=== PATIENT | female | born 1985 | race Caucasian/White ===

== ENCOUNTER 2020-04-02 16:02 | Outpatient (CLI) | payer OTHER ==
[2020-04-02 16:29] LABS: ALANINE AMINOTRANSFERASE 11 U/L (12-78); ALBUMIN 3.4 g/dL (3.4-5.0); ANION GAP 5 mmol/L (5-15); CALCIUM 9.2 mg/dL (8.5-10.1); CHLORIDE 106 mmol/L (98-107)
[2020-04-02 16:38] LABS: ALKALINE PHOSPHATASE 56 U/L (45-117); BILIRUBIN,TOTAL 0.3 mg/dL (0.2-1.0); T4 (THYROXINE) 12.9 mcg/dL (4.8-13.9); TOTAL PROTEIN 7.2 g/dL (6.4-8.2)
== END 2020-04-02 23:59 | disposition home or self-care (01) ==
LOC: LAB 16:02
PROVIDERS: ATTEND Internal Medicine Cardiovascular Disease
DX: O00.01 Abdominal pregnancy with intrauterine pregnancy (principal); I47.1 Supraventricular tachycardia; R00.2 Palpitations
CPT/HCPCS: 36415; 80053; 83735; 84436; 84443; 84481

== ENCOUNTER 2020-07-24 10:03 | Outpatient (CLI) | payer OTHER ==
[~2020-07-24] VITALS: Ht 157.5 cm; Wt 72.7 kg
[2020-07-24 10:41] LABS: MICROSCOPIC INDICATED
[2020-07-24 10:50] LABS: BASOPHILS % (AUTO) 0 % (0-1); EOSINOPHILS % (AUTO) 0 % (1-7); LYMPHOCYTES % (AUTO) 19 % (22-44); MD NO; MEAN CORPUSCULAR HEMOGLOBIN 34.2 pg (27.0-34.8); MEAN CORPUSCULAR HGB CONC 35.1 g/dL (32.4-35.8); MEAN PLATELET VOLUME 7.8 fL (7.4-10.4); MONOCYTES % (AUTO) 7 % (2-9); NEUTROPHILS % (AUTO) 74 % (42-75); PLATELET COUNT 240 x10^3/uL (130-400); RED BLOOD COUNT 3.14 x10^6/uL (3.82-5.3); RED CELL DISTRIBUTION WIDTH 12.8 % (9.6-15.2)
[2020-07-24 11:01] LABS: ALBUMIN 2.9 g/dL (3.4-5.0); ANION GAP 6 mmol/L (5-15); CHLORIDE 106 mmol/L (98-107)
[2020-07-24 11:06] LABS: ALANINE AMINOTRANSFERASE 8 U/L (12-78); ALKALINE PHOSPHATASE 59 U/L (45-117); BILIRUBIN,TOTAL 0.4 mg/dL (0.2-1.0); CREATININE 0.87 mg/dL (0.55-1.02); TOTAL PROTEIN 6.7 g/dL (6.4-8.2)
== END 2020-07-24 12:00 | disposition home or self-care (01) ==
LOC: LDOP 10:03
PROVIDERS: ATTEND Student in an Organized Health Care Education/Training Program
DX: O09.93 Supervision of high risk pregnancy, unspecified, third trimester (principal); O16.3 Unspecified maternal hypertension, third trimester; Z3A.30 30 weeks gestation of pregnancy
CPT/HCPCS: 36415; 59025; 80053; 81001; 82570; 84156; 84550; 85025; 87086

== ENCOUNTER 2020-08-14 21:32 | Outpatient (CLI) | payer OTHER ==
[~2020-08-14] VITALS: Ht 157.5 cm; Wt 74.1 kg
[2020-08-14 21:41] VITALS: BP 146/84
[2020-08-14 22:07] LABS: ALANINE AMINOTRANSFERASE 11 U/L (12-78); ALBUMIN 2.6 g/dL (3.4-5.0); ANION GAP 6 mmol/L (5-15); CALCIUM 7.8 mg/dL (8.5-10.1); CHLORIDE 109 mmol/L (98-107); CREATININE 0.67 mg/dL (0.55-1.02)
[2020-08-14 22:09] LABS: MICROSCOPIC AUTO
[2020-08-14 22:09] LABS: ALKALINE PHOSPHATASE 66 U/L (45-117); BILIRUBIN,TOTAL 0.4 mg/dL (0.2-1.0); TOTAL PROTEIN 6.3 g/dL (6.4-8.2)
[2020-08-14 22:50] LABS: MEAN CORPUSCULAR HEMOGLOBIN 34.5 pg (27.0-34.8); MEAN PLATELET VOLUME 8.3 fL (7.4-10.4); PLATELET COUNT 208 x10^3/uL (130-400); RED BLOOD COUNT 2.85 x10^6/uL (3.82-5.3); RED CELL DISTRIBUTION WIDTH 13.6 % (9.6-15.2)
[2020-08-14 22:51] LABS: CREATININE,URINE RANDOM < 13.00 mg/dL; TOTAL PROTEIN,URINE RANDOM < 5 mg/dL (0-12)
[2020-08-14] MEDS ORDERED: TERBUTALINE 1 MG/ML, 1ML ONE (23:40)
[2020-08-15] MEDS ORDERED: TERBUTALINE 1 MG/ML, 1ML SQ ONE
[2020-08-15 00:03] LABS: BAND#(MANUAL) 0.28 x10^3/uL; BANDS%(MANUAL) 3 % (0-7); EOS#(MANUAL) 0.19 x10^3/uL (0.0-0.4); EOS% (MANUAL) 2 % (1-7); LYMPH#(MANUAL) 1.79 x10^3/uL (1-3.4); LYMPHS% (MANUAL) 19 % (22-44); METAMYELOCYTES# (MANUAL) 0.09 x10^3/uL (0-0); METAMYELOCYTES% (MANUAL) 1 % (0-1); MONOS#(MANUAL) 0.85 x10^3/uL (0.3-2.7); MONOS% (MANUAL) 9 % (2-9); MYELOCYTES# (MANUAL) 0.28 x10^3/uL (0-0); MYELOCYTES% (MANUAL) 3 % (0-0); SEG#(MANUAL) 5.92 x10^3/uL (1.8-6.8); SEGS% (MANUAL) 63 % (42-75)
[2020-08-15 00:05] LABS: <PLATELET ESTIMATE> ADEQUATE; <PLT MORPHOLOGY> NORMAL PLT MORPH; <RBC MORPHOLOGY> NORMAL
== END 2020-08-15 00:24 | disposition home or self-care (01) ==
LOC: LDOP 21:32
PROVIDERS: ATTEND Student in an Organized Health Care Education/Training Program
DX: O62.9 Abnormality of forces of labor, unspecified (principal); R10.9 Unspecified abdominal pain; Z3A.34 34 weeks gestation of pregnancy
CPT/HCPCS: 36415; 59025; 76819; 80053; 81001; 82570; 84156; 84550; 85025; 87086; 96372; J3105

== ENCOUNTER 2020-08-25 10:46 | Observation (INO) | payer OTHER ==
[~2020-08-25] VITALS: Ht 157.5 cm; Wt 74.1 kg
[2020-08-25 11:04] VITALS: BP 156/96
[2020-08-25 11:36] LABS: MICROSCOPIC INDICATED
[2020-08-25 11:50] LABS: CREATININE,URINE RANDOM 76.6 mg/dL
[2020-08-25] MEDS ORDERED: ACETAMINOPHEN 325 MG TABLET ONE (11:52)
[2020-08-25] MEDS: ACETAMINOPHEN 325 MG TABLET PO PRN (11:55)
[2020-08-25 12:03] LABS: BASOPHILS % (AUTO) 1 % (0-1); EOSINOPHILS % (AUTO) 0 % (1-7); LYMPHOCYTES % (AUTO) 13 % (22-44); MEAN CORPUSCULAR HEMOGLOBIN 35.1 pg (27.0-34.8); MEAN CORPUSCULAR HGB CONC 35.7 g/dL (32.4-35.8); MONOCYTES % (AUTO) 8 % (2-9); NEUTROPHILS % (AUTO) 78 % (42-75); PLATELET COUNT 226 x10^3/uL (130-400); RED BLOOD COUNT 3.01 x10^6/uL (3.82-5.3)
[2020-08-25 12:13] LABS: ALANINE AMINOTRANSFERASE 14 U/L (12-78); ALBUMIN 2.7 g/dL (3.4-5.0); ANION GAP 10 mmol/L (5-15); BILIRUBIN, DIRECT 0.1 mg/dL (0.1-0.2); CALCIUM 10.1 mg/dL (8.5-10.1); CHLORIDE 108 mmol/L (98-107)
[2020-08-25 12:15] LABS: ALKALINE PHOSPHATASE 70 U/L (45-117); BILIRUBIN,TOTAL 0.5 mg/dL (0.2-1.0); TOTAL PROTEIN 6.6 g/dL (6.4-8.2)
[2020-08-25] MEDS: BETAMETHASONE 6 MG/ML, 5ML IM SCH (14:14)
[2020-08-25] MEDS ORDERED: ASPIRIN 81 MG TABLET EC PO SCH (21:00)
[2020-08-25] MEDS ORDERED: DIPHENHYDRAMINE 25 MG CAPSULE PO ONE (21:00)
[2020-08-25] MEDS ORDERED: ASPIRIN 81 MG TABLET EC HOMEMEDPO SCH (21:00)
[2020-08-25] MEDS ORDERED: PRENATAL VIT/IRON/FA 1 EACH TABLET PO SCH (21:00)
[2020-08-25] MEDS ORDERED: PRENATAL VIT/IRON/FA 1 EACH TABLET HOMEMEDPO SCH (21:00)
[2020-08-26 06:46] LABS: BASOPHILS % (AUTO) 0 % (0-1); EOSINOPHILS % (AUTO) 0 % (1-7); LYMPHOCYTES % (AUTO) 10 % (22-44); MEAN CORPUSCULAR HEMOGLOBIN 34.3 pg (27.0-34.8); MEAN CORPUSCULAR HGB CONC 34.4 g/dL (32.4-35.8); MEAN PLATELET VOLUME 8.2 fL (7.4-10.4); MONOCYTES % (AUTO) 6 % (2-9); NEUTROPHILS % (AUTO) 84 % (42-75); PLATELET COUNT 215 x10^3/uL (130-400); RED BLOOD COUNT 3.03 x10^6/uL (3.82-5.3); RED CELL DISTRIBUTION WIDTH 14.2 % (9.6-15.2)
[2020-08-26 06:56] LABS: ALBUMIN 2.6 g/dL (3.4-5.0); ANION GAP 12 mmol/L (5-15); CALCIUM 11.3 mg/dL (8.5-10.1); CHLORIDE 107 mmol/L (98-107)
[2020-08-26 07:00] LABS: ALANINE AMINOTRANSFERASE 9 U/L (12-78); ALKALINE PHOSPHATASE 69 U/L (45-117); BILIRUBIN,TOTAL 0.5 mg/dL (0.2-1.0); CREATININE 0.81 mg/dL (0.55-1.02); TOTAL PROTEIN 6.3 g/dL (6.4-8.2)
[2020-08-26] MEDS: ACETAMINOPHEN 325 MG TABLET PO PRN (08:48)
[2020-08-26] MEDS: BETAMETHASONE 6 MG/ML, 5ML IM SCH (13:39)
[2020-08-26] MEDS ORDERED: PREN1TAB60 PO (17:07)
[2020-08-26] MEDS ORDERED: ACET650S21 PO (17:08)
[2020-08-26] MEDS ORDERED: HYDR-3341 PO (17:09)
[2020-08-26] MEDS ORDERED: METO-282 PO (17:13)
[2020-08-26] MEDS ORDERED: ASPI-963 PO (17:14)
[2020-08-27] MEDS ORDERED: MAGNESIUM SULFATE PMX 4GM/100M 100 ML IVPB ONE (08:30)
[2020-08-27] MEDS ORDERED: LACTATED RINGERS 1,000 ML IV SCH (08:30)
[2020-08-27] MEDS ORDERED: FENTANYL PF 100 MCG/2ML IV PRN (08:30)
[2020-08-27] MEDS ORDERED: CALCIUM CARBONATE 500 MG TAB.CHEW PO PRN (08:30)
[2020-08-27] MEDS ORDERED: FENTANYL PF 100 MCG/2ML IVPush PRN (08:30)
[2020-08-27] MEDS ORDERED: OXYTOCIN 30U/ 0.9% NaCL 500ML 500 ML IV ONE (08:30)
[2020-08-27] MEDS ORDERED: TERBUTALINE 1 MG/ML, 1ML IVPush PRN (08:30)
[2020-08-27] MEDS ORDERED: TERBUTALINE 1 MG/ML, 1ML SQ PRN (08:30)
[2020-08-27] MEDS ORDERED: SODIUM CITRATE/CITRIC ACID 30 ML UDC PO PRN (08:30)
[2020-08-27] MEDS ORDERED: OXYTOCIN 30U/ 0.9% NaCL 500ML 500 ML IV PRN (08:30)
[2020-08-27] MEDS ORDERED: MAGNESIUM SULF. PMX 20GM/500ML 500 ML IV SCH (08:30)
[2020-08-27] MEDS ORDERED: ONDANSETRON 2MG/ML, 2ML IVPush PRN (08:30)
[2020-08-27] MEDS ORDERED: MISOPROSTOL 25 MCG TABLET VG PRN (08:30)
[2020-08-27] MEDS ORDERED: D5%-LACTATED RINGERS 1,000 ML IV SCH (08:30)
[2020-08-27] MEDS ORDERED: PENICILLIN GK 2,500,000 UNITS in DEXTROSE 5% 100 ML IVPB SCH (12:30)
== END 2020-08-26 17:19 | disposition home or self-care (01) ==
LOC: LDOP 10:46 → OBSVTOIN 13:07 → LDIP 13:07 → INTOOBSV 13:07 → LDIP 08-27 07:53
PROVIDERS: ADMIT Student in an Organized Health Care Education/Training Program; ATTEND Student in an Organized Health Care Education/Training Program
DX: O13.3 Gestational [pregnancy-induced] hypertension without significant proteinuria, third trimester (principal); O99.413 Diseases of the circulatory system complicating pregnancy, third trimester; I47.1 Supraventricular tachycardia; O09.523 Supervision of elderly multigravida, third trimester; Z3A.34 34 weeks gestation of pregnancy
CPT/HCPCS: 36415; 76815; 80053; 81001; 82248; 82570; 83615; 84156; 84550; 85025; 96372; G0378; J0702; Q0163; J3475; J7120

== ENCOUNTER 2020-08-27 06:35 | Inpatient (IN) | payer OTHER ==
[~2020-08-27] VITALS: Ht 167.6 cm; Wt 74.1 kg
[2020-08-27] MEDS: OXYTOCIN 30U/ 0.9% NaCL 500ML 500 ML IV SCH
[~2020-08-27 06:35] MED LIST: ACET650S21 PO; ASPI-963 PO; HYDR-3341 PO; METO-282 PO; PREN1TAB60 PO
[2020-08-27] MEDS ORDERED: ONDANSETRON ODT 4 MG ONE (07:23)
[2020-08-27 07:36] LABS: BASOPHILS % (AUTO) 0 % (0-1); EOSINOPHILS % (AUTO) 0 % (1-7); LYMPHOCYTES % (AUTO) 11 % (22-44); MEAN CORPUSCULAR HEMOGLOBIN 34.9 pg (27.0-34.8); MEAN CORPUSCULAR HGB CONC 34.9 g/dL (32.4-35.8); MONOCYTES % (AUTO) 7 % (2-9); NEUTROPHILS % (AUTO) 82 % (42-75); PLATELET COUNT 252 x10^3/uL (130-400); RED BLOOD COUNT 3.06 x10^6/uL (3.82-5.3); RED CELL DISTRIBUTION WIDTH 13.8 % (9.6-15.2)
[2020-08-27 07:44] LABS: ALBUMIN 2.9 g/dL (3.4-5.0); ANION GAP 12 mmol/L (5-15); CALCIUM 11.7 mg/dL (8.5-10.1); CHLORIDE 105 mmol/L (98-107)
[2020-08-27 07:47] LABS: ALANINE AMINOTRANSFERASE 12 U/L (12-78); ALKALINE PHOSPHATASE 75 U/L (45-117); BILIRUBIN,TOTAL 0.4 mg/dL (0.2-1.0); CREATININE 1.09 mg/dL (0.55-1.02); TOTAL PROTEIN 6.8 g/dL (6.4-8.2)
[2020-08-27] MEDS ORDERED: ONDANSETRON 2MG/ML, 2ML ONE ×2 (07:51→21:30)
[2020-08-27] MEDS ORDERED: MAGNESIUM SULF. PMX 20GM/500ML 500 ML IV ONE ×2 (07:51→17:25)
[2020-08-27 08:10] LABS: TOTAL PROTEIN,URINE RANDOM < 5 mg/dL (0-12)
[2020-08-27] MEDS ORDERED: MISOPROSTOL 25 MCG TABLET ONE ×2 (08:29→08:30)
[2020-08-27] MEDS ORDERED: NEWBORN KIT ONE (08:38)
[2020-08-27] MEDS ORDERED: FAMOTIDINE 20 MG TABLET ONE (08:38)
[2020-08-27] MEDS: FAMOTIDINE 10 MG TAB PO SCH ×2 (08:40→21:00)
[2020-08-27] MEDS ORDERED: MORPHINE SULFATE 4 MG/ML, 1ML ONE ×2 (09:25→20:09)
[2020-08-27] MEDS ORDERED: SODIUM CITRATE/CITRIC ACID 30 ML UDC PO PRN (10:00)
[2020-08-27] MEDS ORDERED: TERBUTALINE 1 MG/ML, 1ML IVPush PRN (10:00)
[2020-08-27] MEDS ORDERED: OXYTOCIN 30U/ 0.9% NaCL 500ML 500 ML IV PRN (10:00)
[2020-08-27] MEDS ORDERED: METOCLOPRAMIDE 5 MG/ML, 2ML IVPush PRN (10:00)
[2020-08-27] MEDS ORDERED: D5%-LACTATED RINGERS 1,000 ML IV SCH (10:00)
[2020-08-27] MEDS ORDERED: CALCIUM CARBONATE 500 MG TAB.CHEW PO PRN (10:00)
[2020-08-27] MEDS ORDERED: FENTANYL PF 100 MCG/2ML IVPush PRN (10:00)
[2020-08-27] MEDS ORDERED: TERBUTALINE 1 MG/ML, 1ML SQ PRN (10:00)
[2020-08-27] MEDS ORDERED: ONDANSETRON 2MG/ML, 2ML IVPush PRN (10:00)
[2020-08-27] MEDS ORDERED: OXYTOCIN 30U/ 0.9% NaCL 500ML 500 ML IV ONE (10:00)
[2020-08-27] MEDS ORDERED: MAGNESIUM SULF. PMX 20GM/500ML 500 ML IV SCH (10:00)
[2020-08-27] MEDS ORDERED: FENTANYL PF 100 MCG/2ML IV PRN (10:00)
[2020-08-27] MEDS ORDERED: MISOPROSTOL 25 MCG TABLET VG PRN (10:00)
[2020-08-27] MEDS ORDERED: morphine SULFATE 10 MG/ML, 1ML IVPush ONE (10:00)
[2020-08-27] MEDS ORDERED: LACTATED RINGERS 1,000 ML IV SCH ×2 (10:00→17:00)
[2020-08-27] MEDS: PENICILLIN GK 2,500,000 UNITS in DEXTROSE 5% 100 ML IVPB SCH ×2 (13:00→17:15)
[2020-08-27] MEDS: MAGNESIUM SULF. PMX 20GM/500ML 500 ML IV SCH (15:03)
[2020-08-27] MEDS ORDERED: BUPIVACAINE 0.25% ONE (16:10)
[2020-08-27] MEDS ORDERED: FENTANYL/BUPIV./NS/PF 250 ML EPIDCONT ONE (16:11)
[2020-08-27] MEDS ORDERED: LACTATED RINGERS 1,000 ML IVBOLUS PRN (17:00)
[2020-08-27] MEDS ORDERED: FENTANYL/BUPIV./NS/PF 250 ML EPIDCONT SCH (17:00)
[2020-08-27] MEDS ORDERED: EPHEDRINE 50 MG/ML, 1ML IVPush PRN (17:00)
[2020-08-27] MEDS ORDERED: ACETAMINOPHEN 325 MG TABLET ONE (18:58)
[2020-08-27] MEDS ORDERED: SODIUM CITRATE/CITRIC ACID 15 ML UDC ONE (20:20)
[2020-08-27] MEDS ORDERED: MORPHINE SULFATE 4 MG/ML, 1ML IVPush ONE (20:30)
[2020-08-27] MEDS ORDERED: LIDOCAINE/MPF 2%-EPI 1:200K, 20 ML ONE (21:29)
[2020-08-27] MEDS ORDERED: OXYTOCIN 10 UNITS/ML, 1ML ONE (21:30)
[2020-08-27] MEDS ORDERED: CEFAZOLIN 1,000 MG ONE (21:30)
[2020-08-27] MEDS ORDERED: FENTANYL PF 100 MCG/2ML ONE (21:31)
[2020-08-27] MEDS ORDERED: HYDROmorphone 2 MG/ML, 1ML ONE (21:31)
[2020-08-27] MEDS ORDERED: KETOROLAC 30 MG/1 ML ONE (22:18)
[2020-08-27] MEDS ORDERED: IBUPROFEN 800 MG TABLET PO PRN (23:00)
[2020-08-27] MEDS: LACTATED RINGERS 1,000 ML IV SCH ×2 (23:00)
[2020-08-27] MEDS ORDERED: MORPHINE SULFATE 4 MG/ML, 1ML IVPush PRN (23:00)
[2020-08-27] MEDS ORDERED: MEPERIDINE/PF 100 MG/ML IVPush PRN (23:00)
[2020-08-27] MEDS ORDERED: MISOPROSTOL 200 MCG TABLET PR PRN (23:00)
[2020-08-27] MEDS ORDERED: SIMETHICONE 80 MG CHEW TAB PO PRN (23:00)
[2020-08-27] MEDS ORDERED: ONDANSETRON 2MG/ML, 2ML IV PRN (23:00)
[2020-08-27] MEDS ORDERED: morphine SULFATE 10 MG/ML, 1ML IVPush PRN (23:00)
[2020-08-27] MEDS ORDERED: ACETAMINOPHEN 325 MG TABLET PO PRN (23:00)
[2020-08-28] MEDS: OXYcodone/APAP 5/325MG TABLET PO PRN ×6 (00:50→23:45)
[2020-08-28] MEDS ORDERED: KETOROLAC 30 MG/1 ML ONE (03:28)
[2020-08-28] MEDS: KETOROLAC 30 MG/1 ML IV SCH ×4 (03:30→19:28)
[2020-08-28 05:33] LABS: BASOPHILS % (AUTO) 0 % (0-1); EOSINOPHILS % (AUTO) 0 % (1-7); LYMPHOCYTES % (AUTO) 11 % (22-44); MEAN CORPUSCULAR HEMOGLOBIN 35.2 pg (27.0-34.8); MEAN CORPUSCULAR HGB CONC 35.3 g/dL (32.4-35.8); MEAN PLATELET VOLUME 7.8 fL (7.4-10.4); MONOCYTES % (AUTO) 9 % (2-9); NEUTROPHILS % (AUTO) 80 % (42-75); PLATELET COUNT 201 x10^3/uL (130-400); RED BLOOD COUNT 2.38 x10^6/uL (3.82-5.3)
[2020-08-28 06:03] LABS: ALBUMIN 2.1 g/dL (3.4-5.0); ANION GAP 7 mmol/L (5-15); CALCIUM 7.7 mg/dL (8.5-10.1); CHLORIDE 103 mmol/L (98-107)
[2020-08-28 06:07] LABS: ALANINE AMINOTRANSFERASE 11 U/L (12-78); ALKALINE PHOSPHATASE 56 U/L (45-117); BILIRUBIN,TOTAL 0.3 mg/dL (0.2-1.0); CREATININE 0.98 mg/dL (0.55-1.02); TOTAL PROTEIN 5.1 g/dL (6.4-8.2)
[2020-08-28] MEDS: LACTATED RINGERS 1,000 ML IV SCH ×5 (07:00→23:00)
[2020-08-28] MEDS: PRENATAL VIT/IRON/FA 1 EACH TABLET PO SCH (08:49)
[2020-08-28] MEDS: DOCUSATE 100 MG CAPSULE PO PRN ×2 (08:49→23:44)
[2020-08-28] MEDS: OXYTOCIN 30U/ 0.9% NaCL 500ML 500 ML IV SCH ×2 (09:00→19:00)
[2020-08-28] MEDS: FAMOTIDINE 10 MG TAB PO SCH ×2 (09:00→21:00)
[2020-08-28] MEDS: MAGNESIUM SULF. PMX 20GM/500ML 500 ML IV SCH (14:58)
[2020-08-28] MEDS ORDERED: FAMOTIDINE 20 MG TABLET ONE (23:49)
[2020-08-28 23:51] VITALS: BP 142/77
[2020-08-29] MEDS: KETOROLAC 30 MG/1 ML IV SCH ×3 (02:39→16:00)
[2020-08-29 04:50] VITALS: BP 133/90
[2020-08-29] MEDS: LACTATED RINGERS 1,000 ML IV SCH ×4 (05:00→15:00)
[2020-08-29] MEDS: OXYTOCIN 30U/ 0.9% NaCL 500ML 500 ML IV SCH ×2 (05:00→15:00)
[2020-08-29] MEDS: OXYcodone/APAP 5/325MG TABLET PO PRN ×4 (06:45→20:29)
[2020-08-29 08:30] VITALS: BP 148/87
[2020-08-29] MEDS: FAMOTIDINE 10 MG TAB PO SCH ×2 (09:00→23:14)
[2020-08-29] MEDS: DOCUSATE 100 MG CAPSULE PO PRN ×2 (10:57→20:26)
[2020-08-29] MEDS: PRENATAL VIT/IRON/FA 1 EACH TABLET PO SCH (10:57)
[2020-08-29 20:10] VITALS: BP 144/84
[2020-08-30] MEDS: OXYTOCIN 30U/ 0.9% NaCL 500ML 500 ML IV SCH ×2 (01:00→12:10)
[2020-08-30] MEDS: MAGNESIUM SULF. PMX 20GM/500ML 500 ML IV SCH (02:00)
[2020-08-30] MEDS: OXYcodone/APAP 5/325MG TABLET PO PRN ×7 (02:20→22:52)
[2020-08-30 05:30] VITALS: BP 126/77
[2020-08-30] MEDS: DOCUSATE 100 MG CAPSULE PO PRN (08:13)
[2020-08-30] MEDS: PRENATAL VIT/IRON/FA 1 EACH TABLET PO SCH (08:13)
[2020-08-30] MEDS: FAMOTIDINE 10 MG TAB PO SCH ×2 (08:14→22:15)
[2020-08-30 08:15] VITALS: BP 155/92
[2020-08-30 09:35] VITALS: BP 146/84
[2020-08-30] MEDS ORDERED: POLYETHYLENE GLYCOL 17 GM PACKET ONE (09:46)
[2020-08-30] MEDS: POLYETHYLENE GLYCOL 17 GM PACKET NG SCH (09:50)
[2020-08-30] MEDS: niFEDipine ER 30 MG TABLET.ER PO SCH (12:51)
[2020-08-30 17:13] VITALS: BP 134/76
[2020-08-30 20:00] VITALS: BP 139/81
[2020-08-31 00:15] VITALS: BP 148/83
[2020-08-31] MEDS: OXYcodone/APAP 5/325MG TABLET PO PRN ×3 (02:52→10:50)
[2020-08-31 03:53] VITALS: BP 148/90
[2020-08-31] MEDS ORDERED: DOCU-131 PO (07:07)
[2020-08-31] MEDS ORDERED: OXYC1TAB14 PO (07:07)
[2020-08-31] MEDS ORDERED: NIFE30TA13 PO (07:07)
[2020-08-31 08:00] VITALS: BP 149/90
[2020-08-31] MEDS: PRENATAL VIT/IRON/FA 1 EACH TABLET PO SCH (09:16)
[2020-08-31] MEDS: DOCUSATE 100 MG CAPSULE PO PRN (09:16)
[2020-08-31] MEDS: POLYETHYLENE GLYCOL 17 GM PACKET NG SCH (09:17)
[2020-08-31] MEDS: FAMOTIDINE 10 MG TAB PO SCH (09:17)
[2020-08-31] MEDS: niFEDipine ER 30 MG TABLET.ER PO SCH (09:17)
[2020-08-31 12:23] VITALS: BP 142/88
[2020-08-31] MEDS ORDERED: RHOGAM FROM BLOOD BANK 1 NOTE EA IM/IV ONE (12:30)
== END 2020-08-31 14:40 | disposition home or self-care (01) | DRG 785 ==
LOC: LDOP 06:35 → LDIP 09:12 → 2NE 22:40 → 2NW 08-28 22:41
PROVIDERS: ADMIT Student in an Organized Health Care Education/Training Program; ATTEND Student in an Organized Health Care Education/Training Program
PROC: 10D00Z1 Extraction of Products of Conception, Low, Open Approach (ICD-10-PCS; principal; 2020-08-27)
PROC: 0UB70ZZ Excision of Bilateral Fallopian Tubes, Open Approach (ICD-10-PCS; 2020-08-27)
PROC: 3E0234Z Introduction of Serum, Toxoid and Vaccine into Muscle, Percutaneous Approach (ICD-10-PCS; 2020-08-31)
DX: O14.14 Severe pre-eclampsia complicating childbirth (principal); Z20.822 Contact with and (suspected) exposure to COVID-19; O32.1XX0 Maternal care for breech presentation, not applicable or unspecified; O76 Abnormality in fetal heart rate and rhythm complicating labor and delivery; O32.2XX0 Maternal care for transverse and oblique lie, not applicable or unspecified; O69.81X0 Labor and delivery complicated by cord around neck, without compression, not applicable or unspecified; Z30.2 Encounter for sterilization; Z37.0 Single live birth; Z3A.35 35 weeks gestation of pregnancy; Z82.49 Family history of ischemic heart disease and other diseases of the circulatory system; Z87.11 Personal history of peptic ulcer disease; Z88.5 Allergy status to narcotic agent; Z88.8 Allergy status to other drugs, medicaments and biological substances; O90.81 Anemia of the puerperium; O26.893 Other specified pregnancy related conditions, third trimester; Z67.41 Type O blood, Rh negative
CPT/HCPCS: 36415; J7121; 80053; 82570; 83735; 84156; 85025; 85460; 85461; 86592; 86850; 86870; 86900; 86922; 86923; 87635; 88305; G0378; J0690; J1170; J1885; J2405; J2540; J2790; J3010; J2270; J2590; J2765; J3475; J7120